=== PATIENT | female | born 1955 | race Caucasian/White ===

== ENCOUNTER 2020-07-12 04:54 | Inpatient (IN) ==
[2020-07-05 13:15] LABS: Basophils # (Auto) 0.08 K/mcL (0.00-0.20); Basophils % (Auto) 1.1 % (0.0-2.0); Eosinophils # (Auto) 0.14 K/mcL (0.00-0.70); Eosinophils % (Auto) 1.9 % (0.0-7.0); Hematocrit 40.9 % (36.0-48.0); Hemoglobin 12.7 g/dL (12.0-15.0); Lymphocytes # (Auto) 2.34 K/mcL (1.50-4.80); Lymphocytes % (Auto) 32.5 % (15.0-49.0); Mean Cell Volume 91.5 fL (80.0-100.0); Mean Corpuscular HGB Conc 31.1 g/dL (31.0-36.0); Mean Platelet Volume 10.7 fL (7.4-10.4); Monocytes # (Auto) 0.54 K/mcL (0.10-0.90); Monocytes % (Auto) 7.5 % (1.0-12.0); Platelet Count 339 K/mcL (140-440); RBC 4.47 M/mcL (4.00-5.20); Red Cell Distribution Width 14.6 % (11.5-14.5); WBC 7.2 K/mcL (4.5-11.0)
[2020-07-05 13:41] LABS: Estimated Average Glucose(eAG) 134 mg/dL; Hemoglobin A1C 6.3 % Hgb (4.0-6.0)
[2020-07-05 13:59] LABS: Blood Urea Nitrogen 19 mg/dL (8-23); Calcium 9.4 mg/dL (8.6-10.4); Carbon Dioxide 26 mmol/L (22-30); Chloride 101 mmol/L (96-108); Glomerular Filtration Rate 59; Glucose 120 mg/dL (70-105)
[2020-07-05 14:04] LABS: INR 0.9 (0.9-1.1); Partial Thromboplastin Time 30.2 sec (20.0-37.0); Prothrombin Time 12.5 sec (11.9-14.5)
[2020-07-05 15:31] LABS: Appearance,Urine CLEAR (Clear); Bilirubin,Urine Negative (Negative); Color,Urine STRAW; Culture Indicated,Urine No; Glucose,Urine (UA) Negative (Negative); Ketones,Urine Negative (Negative); Leukocyte Esterase,Urine Negative /ug (Negative); Nitrate,Urine Negative (Negative); Protein,Urine Negative (Negative); Specific Gravity,Urine 1.011 (1.000-1.035); Urine Blood Negative (Negative); Urobilinogen,Urine Negative
[2020-07-12] MEDS ORDERED: SCOPOLAMINE 1 PATCH PATCH TOPICAL PRN (05:00)
[2020-07-12] MEDS ORDERED: IPRATROPIUM/ALBUTEROL 3 ML AMPUL.NEB NEB PRN ×2 (05:00→08:24)
[2020-07-12] MEDS ORDERED: PREGABALIN 75 MG CAPSULE PO SCH (06:00)
[2020-07-12] MEDS ORDERED: ACETAMINOPHEN 500 MG TABLET PO SCH (06:00)
[2020-07-12] MEDS ORDERED: CELECOXIB 200 MG CAPSULE PO SCH (06:00)
[2020-07-12] MEDS ORDERED: 0.9 % SODIUM CHLORIDE 9 ML, KETOROLAC 30 MG, ROPIVACAINE HCL/PF 49.5 ML, EPINEPHrine 0.... IJ SCH (06:00)
[2020-07-12] MEDS ORDERED: ceFAZolin 2 GM in DEXTROSE 5% IN WATER 50 ML IV SCH (06:00)
[2020-07-12] MEDS ORDERED: PROPOFOL 200 MG/20 ML VIAL IV ONE (07:28)
[2020-07-12] MEDS ORDERED: LIDOCAINE HCL/PF 100 MG/5 ML SYRINGE IV ONE (07:28)
[2020-07-12] MEDS ORDERED: KETAMINE 100 MG/ML ML ONE (07:28)
[2020-07-12] MEDS ORDERED: TRANEXAMIC ACID 1,000 MG/10 ML VIAL IV ONE ×2 (07:28→08:55)
[2020-07-12] MEDS ORDERED: ONDANSETRON 4 MG/2 ML VIAL ONE (07:28)
[2020-07-12] MEDS ORDERED: fentaNYL 100 MCG/2 ML VIAL IV ONE (07:28)
[2020-07-12] MEDS ORDERED: ROPIVACAINE HCL/PF 20 ML VIAL IJ ONE (07:28)
[2020-07-12] MEDS ORDERED: DEXAMETHASONE 10 MG/ML VIAL ONE (07:28)
[2020-07-12] MEDS ORDERED: fentaNYL 100 MCG/2 ML VIAL IV PRN (08:24)
[2020-07-12] MEDS ORDERED: MEPERIDINE 25 MG/ML SYRINGE IV PRN (08:24)
[2020-07-12] MEDS ORDERED: PROMETHAZINE 25 MG/ML VIAL IV PRN (08:24)
[2020-07-12] MEDS ORDERED: NALOXONE HCL 0.4 MG/ML VIAL IV PRN (08:24)
[2020-07-12] MEDS ORDERED: LACTATED RINGERS 250 ML IV PRN (08:24)
[2020-07-12] MEDS ORDERED: diphenhydrAMINE 50 MG/ML VIAL IV PRN (08:24)
[2020-07-12] MEDS ORDERED: ONDANSETRON 4 MG/2 ML VIAL IV PRN ×2 (08:24→08:55)
[2020-07-12] MEDS ORDERED: LACTATED RINGERS 1,000 ML IV SCH (08:30)
--- NOTE | 2020-07-12 08:51 | Discharge Plan ---
Discharge Instructions - TKA Patient Instructions Total Knee Protocol: For Total Knee: Start ROM MARIALUISA with stationary bike or rocking chair. Work on gaining full extension of knee. Posterior dislocation precautions provided. Hip abductor strengthening and gait training instructions provided. Apply Cryocuff as instructed. Discharge Plan Patient/Caregiver Discharge Instructions Activity: ambulate only with your walker and as per physical therapy Diet: Regular Diet Prescriptions: New hydrocodone-acetaminophen 10-325 mg Tablet 1 - 2 tab PO Q4H PRN (Reason: Pain) Qty: 75 RF: 0 aspirin [Ecotrin] 325 mg tablet,delayed release (DR/EC) 325 mg PO BID 2 Days Qty: 4 RF: 0 docusate sodium 100 mg capsule 100 mg PO BID Qty: 60 RF: 0 No Action albuterol sulfate [Ventolin HFA] 90 mcg/actuation HFA aerosol inhaler 2 puff INHALATION Q6H PRN (Reason: shortness of breath or wheezing) Qty: 8.5 RF: 6 Eliquis 5 mg tablet 5 mg PO BID Qty: 60 RF: 3 furosemide [Lasix] 20 mg tablet 20 mg PO QAM Qty: 30 RF: 3 montelukast 10 mg Tablet 10 mg PO QDAY RF: 0 trazodone 100 mg tablet 100 mg PO QHS RF: 0 fluticasone propionate [Flonase Allergy Relief] 50 mcg/actuation spray,suspension 2 spray INTRANASAL PRN PRN (Reason: Allergy Symptoms) RF: 0 losartan 100 mg tablet 100 mg PO QHS RF: 0 Other Ambulatory Orders: CPM Discharge Order (ONCE) Location: None Selected Ordered By: Steve Tovar Physical Therapy DC - TKA (Routine) Location: None Selected Ordered By: Steve Tovar Toilet Riser Discharge Order (ONCE) Location: None Selected Ordered By: Steve Tovar Walker (ONCE) Location: None Selected Ordered By: Steve Tovar Follow Up Plan Follow up with: Steve Tovar PA-C [Physician Retail Delivery Driver] - Patient Disposition: Home, Self-Care Prognosis: Good Rehab Potential: Good I certify that the patient requires SNF services: No Overall status at discharge: patient is progressing back to baseline Discharge Orders: Discharge Order (Routine); Ordered 07/13/20 Ordered By: Steve Tovar
--- NOTE | 2020-07-12 08:54 | Brief Operative Note ---
Brief Operative Note Date of procedure: 07/12/20 Pre-op diagnosis: right knee loose ligaments Post-op diagnosis: same Procedure: right knee revision tka Grafts/Implants: Yes Anesthesia: GETA Complications: none Complications Description: none Surgeon: Denis Cotton Want Ad Supervisor: Steve Tovar Estimated blood loss (cc): 20 Tourniquet Time (Minutes): 35 Specimens Removed/Pathology: none sent Condition: stable Disposition: PACU
[2020-07-12] MEDS ORDERED: POLYETHYLENE GLYCOL 3350 17 GM PACKET PO PRN (08:55)
[2020-07-12] MEDS ORDERED: MAGNESIUM HYDROXIDE 30 ML ORAL.SUSP PO PRN (08:55)
[2020-07-12] MEDS ORDERED: FLEETS ADULT ENEMA PR PRN (08:55)
[2020-07-12] MEDS ORDERED: BENZOCAINE/MENTHOL 1 LOZENGE PO PRN (08:55)
[2020-07-12] MEDS ORDERED: BISACODYL 10 MG SUPP.RECT PR PRN (08:55)
[2020-07-12] MEDS ORDERED: ACETAMINOPHEN 325 MG TABLET PO PRN (08:55)
[2020-07-12] MEDS ORDERED: TEMAZEPAM 15 MG CAPSULE PO PRN (08:55)
[2020-07-12] MEDS ORDERED: FLUTICASONE PROPIONATE SPRAY.NAS NS PRN (08:57)
[2020-07-12] MEDS ORDERED: ALBUTEROL SULFATE 200 PUFF INHALER INH PRN (08:57)
[2020-07-12] MEDS ORDERED: 0.45 % SODIUM CHLORIDE 1,000 ML IV SCH (09:00)
[2020-07-12] MEDS ORDERED: ASPIRIN 325 MG ENTERIC COATED TABLET PO SCH (09:00)
--- NOTE | 2020-07-12 09:19 | XRay Report ---
INDICATION: Post-Op Total Knee TECHNIQUE: AP and cross table lateral right knee COMPARISON: Preoperative evaluation dated 11/29/2009 FINDINGS:Status post right total knee arthroplasty. Femoral and tibial complements are in anatomic positions. Mild postsurgical soft tissue gas. IMPRESSION: Right total knee arthroplasty Interpreted and Authenticated by: Viet Vila 07/12/20
[2020-07-12] MEDS: HYDROcodone/APAP 10/325MG TABLET PO PRN ×3 (09:59→17:51)
[2020-07-12] MEDS: HYDROmorphone 1 MG/ML SYRINGE IV PRN ×3 (10:08→21:12)
[2020-07-12] MEDS ORDERED: GENTAMICIN SULFATE 800 MG/20 ML VIAL IR ONE (10:49)
[2020-07-12] MEDS: KETOROLAC 15 MG/ML VIAL IV SCH ×2 (11:09→17:42)
[2020-07-12] MEDS: ceFAZolin 1 GM VIAL IV SCH (16:21)
[2020-07-12] MEDS: 0.9 % SODIUM CHLORIDE 10 ML SYRINGE IV SCH ×2 (16:29→20:48)
[2020-07-12] MEDS: MONTELUKAST 10 MG TABLET PO SCH (16:30)
[2020-07-12] MEDS: DOCUSATE SODIUM 100 MG CAPSULE PO SCH ×2 (16:30→20:48)
[2020-07-12] MEDS: FUROSEMIDE 20 MG TABLET PO SCH (18:39)
[2020-07-12] MEDS: ASPIRIN 81 MG TAB.CHEW CHEWED SCH (20:48)
[2020-07-12] MEDS ORDERED: SENNOSIDES 1 TABLET PO SCH (21:00)
[2020-07-12] MEDS ORDERED: LOSARTAN 50 MG TABLET PO SCH (21:00)
[2020-07-12] MEDS ORDERED: traZODone HCL 100 MG TABLET PO SCH (21:00)
[2020-07-12] MEDS ORDERED: APIXABAN 5 MG TABLET PO SCH (21:00)
[2020-07-13] MEDS: HYDROcodone/APAP 10/325MG TABLET PO PRN ×3 (00:02→08:16)
[2020-07-13] MEDS: ceFAZolin 1 GM VIAL IV SCH (00:03)
[2020-07-13] MEDS: KETOROLAC 15 MG/ML VIAL IV SCH ×2 (00:03→05:35)
[2020-07-13] MEDS: 0.9 % SODIUM CHLORIDE 10 ML SYRINGE IV SCH (05:36)
[2020-07-13] MEDS: HYDROmorphone 1 MG/ML SYRINGE IV PRN (07:33)
--- NOTE | 2020-07-13 07:37 | Orthopedic Progress Note ---
SUBJECTIVE Subjective Patient information: Note initiated : 07/13/20 at 7:36 am Service Date, if different from initiated Date: [] Patient: Tracy Chaudhry 65 y/o F admitted on 07/12/20 for Right Total Knee Arthroplasty Revision - Polyliner. Chief Complaint: [Pt is stable this morning on post operative day without any significant concerns or complaints. Patients vital signs have remained stable. Patients dressing is dry and is grossly intact from a neurovascular and motor standpoint. Patients 10 point ROS is otherwise negative. ] Constitutional Vitals: Vital Signs Temp Pulse Resp BP Pulse Ox 97.6 F 61 20 176/78 95 07/13/20 04:11 07/13/20 04:11 07/13/20 04:11 07/13/20 04:11 07/13/20 04:11 Period Temp Pulse Resp BP Sys/[place] Pulse Ox Last 24 Hr 97.4 F-98.3 F 54-69 13-20 140-176/68-90 91-100 Intake and Output 07/12/20 07/13/20 07/13/20 21:59 05:59 13:59 Intake Total 1280 725 Output Total 900 300 Balance 380 425 Weight 259 lb 3.2 oz Intake & Output: Intake & Output 07/12/20 07/13/20 07/13/20 21:59 05:59 13:59 Intake Total 1280 725 Output Total 900 300 Balance 380 425 Weight 259 lb 3.2 oz Intake: Oral 1280 725 Output: Void Amount 900 300 Other: Meal Dinner Percent of Meal Consumed 100% Urine Appearance Clear Clear Urine Color Bright Yellow Bright Yellow # Voids 1 Extremities Exam Extremities exam: Present normal capillary refill, normal inspection, Foot pink and warm and neurovascular intact OBJ DATA Labs CBC & Chem 7: 07/13/20 05:17 07/05/20 10:38 Labs: Abnormal Lab Results 07/13/20 05:17 Hct 35.8 L Meds: Medications Acetaminophen (Tylenol) 650 mg PO Q6HP PRN; Protocol PRN Reason: Per Pain Protocol/Fever > 101 Hydrocodone Bitart/Acetaminophen ([place] 10/325mg) 1 - 2 tab PO Q4HP PRN; Protocol PRN Reason: Per Pain Protocol Last Admin: 07/13/20 03:43 Dose: 2 tab Documented by: Albuterol Sulfate (Ventolin) 2 puff INH Q6H PRN PRN Reason: shortness of breath or wheezing Aspirin (Aspirin) 81 mg CHEWED BID [facility] Last Admin: 07/12/20 20:48 Dose: 81 mg Documented by: Bisacodyl (Dulcolax) 10 mg [place] Q2-3DAYS PRN PRN Reason: Constipation Docusate Sodium (Colace) 100 mg PO BID [facility] Last Admin: 07/12/20 20:48 Dose: 100 mg Documented by: Fluticasone Propionate (Flonase) 2 spray NS DAILYP PRN PRN Reason: Allergy Symptoms Furosemide (Lasix) 20 mg PO QAM [facility] Last Admin: 07/12/20 18:39 Dose: Not Given Documented by: Hydromorphone HCl (Dilaudid) 0 mg IV Q2HP PRN; Protocol PRN Reason: Per Pain Protocol Last Admin: 07/13/20 07:33 Dose: 0.5 mg Documented by: Ketorolac Tromethamine (Toradol) 15 mg IV Q6 [facility] Stop: 07/14/20 06:01 Last Admin: 07/13/20 05:35 Dose: 15 mg Documented by: Losartan Potassium (Cozaar) 100 mg PO QHS [facility] Last Admin: 07/12/20 20:48 Dose: 100 mg Documented by: Magnesium Hydroxide (Milk Of Magnesia) 30 ml PO BIDP PRN PRN Reason: Constipation Montelukast Sodium (Singular) 10 mg PO QDAY [facility] Last Admin: 07/12/20 16:30 Dose: Not Given Documented by: Ondansetron HCl (Zofran) 4 mg IV Q4HP PRN PRN Reason: Nausea And Vomiting Polyethylene Glycol (Miralax) 17 gm PO DAILYP PRN PRN Reason: Constipation Senna (Senokot) 2 tab PO HS [facility] Last Admin: 07/12/20 20:48 Dose: 2 tab Documented by: Sodium Biphosphate/Sodium Phosphate (Fleets Adult) 1 dose [place] Q3-4DAYS PRN PRN Reason: Constipation Sodium Chloride (Saline Flush) 10 ml IV Q8 [facility] Last Admin: 07/13/20 05:36 Dose: 10 ml Documented by: Temazepam (Restoril) 15 mg PO HSP PRN PRN Reason: Insomnia Throat Lozenges (Cepacol) 1 lozenge PO PRN PRN PRN Reason: Sore Throat Trazodone HCl (Desyrel) 100 mg PO QHS [facility] Last Admin: 07/13/20 00:12 Dose: 100 mg Documented by: A/P Time Spent With Patient Time: Total time spent is greater than 50% in coordination of care (as documented) at patient's floor/unit and/or counseling patient: Total time spent with greater than 50% in coordination of care (as documented) at patient's floor/unit and/or counseling patient:: less than 15 minutes
[2020-07-13] MEDS: MONTELUKAST 10 MG TABLET PO SCH (08:18)
[2020-07-13] MEDS: ASPIRIN 81 MG TAB.CHEW CHEWED SCH (08:18)
[2020-07-13] MEDS: FUROSEMIDE 20 MG TABLET PO SCH (08:18)
[2020-07-13] MEDS: DOCUSATE SODIUM 100 MG CAPSULE PO SCH (08:18)
--- NOTE | 2020-07-13 08:34 | Operative Note ---
DATE OF OPERATION: 07/12/2020 PREOPERATIVE DIAGNOSIS: Right knee with ligamentous laxity. POSTOPERATIVE DIAGNOSES: Right knee with ligamentous laxity. PROCEDURE: Right total knee revision of the [place] poly liner, one component, cruciate retained design. SURGEON: Denis Cotton M.D. ARTIFICIAL INTELLIGENCE SPECIALIST: Steve Tovar PA-C. This providers expertise and technical skill were required throughout the case. The BRAD assisted with preoperative coordination, intraoperative retraction, wound closure, and dressing and splint application, as well as postoperative documentation and care coordination. ANESTHESIA: General LMA anesthesia. COMPLICATIONS: None. ESTIMATED BLOOD LOSS: About 50 mL. TOURNIQUET TIME: 30 minutes. DESCRIPTION OF PROCEDURE: The patient was brought to the operating room, put to sleep with general endotracheal anesthesia. She then had the right leg sterilely prepped and draped in the usual sterile fashion. We made a midline incision, a midvastus approach was performed and identified the old polyethylene, which was a size 9 poly. Her ligaments were very lax. Once this was removed, we trialed the size 11 and then went to a size 12. The 12 was most appropriate. It gave her full extension and tensioned the ligaments within 1 mm of play. Prior to the procedure she had about 3 mm of play. This stabilized the knee. We kept the posterior cruciate ligament. We did remove some synovitis in the superior pouch and the medial and lateral gutters. We irrigated thoroughly and made an inspection for spurs or any other debris. We thoroughly irrigated prior to the final implant. We placed a 12 mm thick poly liner for a size 3 tibial base plate. This was a posterior cruciate retaining design. Once this was done, we then closed the midvastus approach with #1 Stratafix x2 stitches, closed the skin with Stratafix and adhesive closure. Sterile bandage was applied. RBH:talib Job ID: [id number] Doc ID: [id number] Denis Cotton MD
== END 2020-07-13 11:20 | disposition home or self-care (01) | DRG 488 ==
LOC: MEDSUR 04:54 → EDSTATUS 09:30 → PREOBSVTOIN 17:11
PROVIDERS: ADMIT Orthopaedic Surgery; ATTEND Orthopaedic Surgery